=== PATIENT | male | born 1935 | race Caucasian/White ===

== ENCOUNTER → 2017-02-24 | Outpatient (CLI) | payer MEDICARE, MEDICAID ==
[~2017-02-24] MED LIST: AQUAPHOR1 GM TOP; ARTIFICIAL TEA1 EACH OPHTH; ASPIRIN EC81 MG PO; BYSTOLIC2.5 MG PO; COZAAR25 MG PO; COZAAR50 MG PO; DEBROX,CARBAMID15 ML OTIC; DESYREL100 MG PO; DULCOLAX10 MG R; FEOSOL325 MG PO; FIBERCON1 TAB PO; K-TAB ER20 MEQ PO; LASIX40 MG PO; LEVOTHROID (S200 MCG PO; MILK OF MA400 MG/5 M PO; NITROSTAT0.4 MG SL; NORCO 5-325 TA1 EACH PO; NYSTOP60 GM TOP; OXYGEN M-15 INH; THERA-VITE W/ B1 TAB PO; TYLENOL325 MG PO; ULTRAM50 MG PO; ZOCOR20 MG PO
[2017-02-24 11:13] LABS: ALBUMIN 3.5 gm/dL (3.5-5.0); CALCIUM 8.3 mg/dL (8.5-10.5); CREATININE 1.3 mg/dL (0.6-1.3); TOTAL BILIRUBIN 0.7 mg/dL (0.0-1.5); TOTAL PROTEIN 7.3 g/dL (6.0-8.4)
[2017-02-24 11:22] LABS: ANION GAP 14.3 (10.0-19.0); POTASSIUM 4.3 mMol/L (3.7-5.1)
== END | disposition disaster alternative care site (69) ==
PROVIDERS: Family Medicine
DX: E03.9 Hypothyroidism, unspecified (principal); E87.6 Hypokalemia; J44.9 Chronic obstructive pulmonary disease, unspecified; E78.5 Hyperlipidemia, unspecified

== ENCOUNTER → 2017-06-07 | Day surgery (SDC) | payer MEDICARE, MEDICAID ==
[~2017-06-07] VITALS: Ht 149.9 cm; Wt 147.0 kg
--- NOTE | ~2017-06-07 | OR ---
PATIENT'S NAME: BING LLAMAS [facility] AGE: 81 Y [address] ROOM: [place] [address] LOCATION: [facility] [place] ADMIT DATE: 06/07/2017 OR/Procedure Report DISCHARGE DATE: FAMILY PHYSICIAN: Vincent Blanco MD ATTENDING PHYSICIAN: Louisa Andersen SURGEON: Louisa Andersen MD REPAIR ORDER CLERK: DATE OF PROCEDURE: 06/07/2017 ADDENDUM: PROCEDURE DETAILS: At the end of the procedure, a 16-Stateless Rockwell catheter was placed to prevent wound contamination. The patient tolerated the procedure well and was transferred to the recovery room in good condition. MD KATARINA PETTY/sergl /[id number] CC: Vincent Blanco MD d: 06/07/17 1833 t: 06/21/17 1200, OPERATIVE SUMMARY
--- NOTE | ~2017-06-07 | OR ---
PATIENT'S NAME: BING LLAMAS [facility] AGE: 81 Y [address] ROOM: [place] [address] [place] [facility] [place]: 06/07/2017 OR/Procedure Report DISCHARGE DATE: FAMILY PHYSICIAN: Vincent Blanco MD ATTENDING PHYSICIAN: Louisa Andersen SURGEON: Louisa Andersen MD GLASS ROBOT OPERATOR: DATE OF PROCEDURE: 06/07/2017 PREOPERATIVE DIAGNOSIS: Phimosis. POSTOPERATIVE DIAGNOSIS: Phimosis. PROCEDURES PERFORMED: 1. Circumcision. 2. Rockwell catheter placement. ANESTHESIA: General. COMPLICATIONS: None. INDICATION FOR PROCEDURE: The patient is an 81-year-old male with tight phimosis, resultant difficulty voiding. DETAILS OF PROCEDURE: After informed consent was obtained, the patient was taken to the operating room. A general anesthetic was applied. He was placed in a supine position. The groin area was prepped and draped in normal sterile fashion. Next, the dorsal slit was created. The penis was very retracted secondary to the patient's girth. Following this, a skin incision was made just proximal to the foreskin and infected tissue. Using electrocautery, the foreskin was excised. Bleeding areas were fulgurated. The skin was then reapproximated with interrupted 3-0 chromic sutures in a vertical mattress fashion. This was also reinforced with a few interrupted 3-0 Vicryl sutures. The wound was then dressed in normal sterile fashion with the antibiotic ointment. The patient tolerated the procedure well and was transferred back to the half-way. MD KATARINA PETTY/modl PATIENT'S NAME: BING LLAMAS [facility] AGE: 81 Y [address] ROOM: [place] [address] [place] [facility] [place]: 06/07/2017 OR/Procedure Report DISCHARGE DATE: FAMILY PHYSICIAN: Vincent Blanco MD ATTENDING PHYSICIAN: Louisa Andersen /[id number] CC: Vincent Blanco MD d: 06/07/17 1810 t: 06/21/17 1157, OPERATIVE SUMMARY
[2017-06-07 11:33] LABS: BASOPHIL # 0.1 K/uL (0.0-0.2); BASOPHIL % 0.6 %; EOSINOPHIL # 0.3 K/uL (0.0-0.5); EOSINOPHIL % 2.8 %; HEMATOCRIT 38.8 % (33.0-50.0); HEMOGLOBIN 13.3 g/dL (11.0-16.0); IMMATURE GRANULOCYTE # 0.1 K/uL (0.0-0.3); IMMATURE GRANULOCYTE % 1.4 %; LYMPHOCYTE # 1.7 K/uL (0.8-4.0); LYMPHOCYTE % 18.6 %; MCH 34.4 pg (27.0-34.0); MCHC 34.3 gm/dL (32.0-36.5); MCV 100.3 fl (83.0-98.0); MONOCYTE # 0.6 K/uL (0.0-1.0); MONOCYTE % 6.8 %; MPV 10.5 fl (9.4-12.4); NEUTROPHIL # (ANC) 6.5 K/uL (1.4-9.0); NEUTROPHIL % 69.8 %; NRBC % 0 /100WBC (0-0.00); PLATELET COUNT 123 K/uL (150-450); RBC 3.87 M/uL (3.50-5.50); RDW-CV 14.6 % (11.9-14.6); WBC 9.3 K/uL (4.0-11.0)
[2017-06-07 11:49] LABS: ALBUMIN 3.2 gm/dL (3.5-5.0); ANION GAP 10.7 (10.0-19.0); CREATININE 1.4 mg/dL (0.6-1.3); POTASSIUM 4.7 mMol/L (3.7-5.1); TOTAL BILIRUBIN 0.5 mg/dL (0.0-1.5); TOTAL PROTEIN 7.6 g/dL (6.0-8.4)
== END | disposition disaster alternative care site (69) ==
LOC: GPOC 06-05 09:00 → GSDC 10:50 → GPOC 11:00
PROVIDERS: Urology
PROC: 0VTTXZZ Resection of Prepuce, External Approach (ICD-10-PCS; principal; 2017-06-07)
PROC: 0T9B70Z Drainage of Bladder with Drainage Device, Via Natural or Artificial Opening (ICD-10-PCS; 2017-06-07)
DX: N47.1 Phimosis (principal); N48.5 Ulcer of penis; I10 Essential (primary) hypertension; E78.5 Hyperlipidemia, unspecified; E03.9 Hypothyroidism, unspecified; Z79.82 Long term (current) use of aspirin; Z79.899 Other long term (current) drug therapy
CPT/HCPCS: J2001; J7030

== ENCOUNTER 2017-06-19 15:19 | Inpatient (IN) | payer MEDICARE, MEDICAID ==
[~2017-06-19] VITALS: Ht 180.3 cm; Wt 141.7 kg
--- NOTE | ~2017-06-19 | ECHO ---
Transesophageal Echocardiography Report (SHERINE) Demographics Patient Name BING LLAMAS SR Date of Study 06/22/2017 Patient Number [id number] Visit Number [id number] Date of 1935 Room Number [id number] Gender Male Number Age 81 year(s) Referring Stanislawhamida Kaur Karyn Cloth Finishing Range Tender Whitney Ortega [facility], Physician Howie Decker RVT Physician Interpreting Howie Decker Tile Machine Operator Physician MD Supervising Ordering Jamshid Capellan CRNA, MD/MLP Physician Nurse Stress Workers Compensation Claims Specialist Conclusions Summary Normal LV/RV size and systolic function. The estimated left ventricular ejection fraction is 60-65%. Bubble study was done, there is no evidence for a PFO or ASD. MV is grossly normal. Mild mitral regurgitation by color Doppler. There is trivial aortic regurgitation by color Doppler. The aortic valve is moderately calcific with restricted opening, no obvious vegetation noted. There is no evidence of any gross valvular vegetations. Procedure Type of Study SHERINE procedure Procedure Date Date: 06/22/2017 Start: 07:55 AM Study Location: Inpatient Portable Technical Quality: Adequate visualization Indications:Endocarditis. Appropriate Use Criteria: 9 Patient Status: Routine Rhythm: Atrial fibrillation HR: 101 bpm BP: 144/56 mmHg Findings Left Ventricle The estimated left ventricular ejection fraction is 60-65%. Left Atrium Bubble study was done, there is no evidence for a PFO or ASD. Mitral Valve Mild mitral regurgitation by color Doppler. No vegetations seen. Aortic Valve There is trivial aortic regurgitation by color Doppler. The aortic valve is moderately calcified. No vegetations seen. Tricuspid Valve No vegetations seen. Pulmonic Valve No vegetations seen. Miscellaneous The patient was brought to the [facility] lab in the fasting state after informed consent was obtained in the written and verbal format. He was prepped with Lidocaine as usual. Bite block was placed. Once adequate anesthesia was obtained with anesthesia guidance with propofol sedation the SHERINE probe was placed by me down into the stomach. It was pulled back slightly after a few views were obtained in the transgastric level to the transesophageal position where the majority of the case was carried out. At the end of the case the probe was rotated and withdrawn. Patient tolerated the procedure well. Contractility Score LV regional wall motion:(0-Non visualized 1-Normal 2-Hypokinesis 3-Akinesis 4-Dyskinesis 5-Aneurysm) Signature dtt: MIRTHA PADGETT dtd: 06/22/17 0755 Physician Self Edit
--- NOTE | ~2017-06-19 | HP ---
PATIENT'S NAME: BING LLAMAS [facility] AGE: 81 Y [address] ROOM: [place] [address] LOCATION: GICU ADMIT DATE: 06/19/2017 History & Physical DISCHARGE DATE: FAMILY PHYSICIAN: Vincent Blanco MD ATTENDING PHYSICIAN: YARY AKINS DATE OF SERVICE: 06/19/2017 CHIEF COMPLAINT: Confusion. HISTORY OF PRESENT ILLNESS: This is a pleasant 81-year-old male, dropped off by [facility] where he resides chronically, was dropped off without communication from staff regarding recent concerns at skilled nursing. The patient was noted to be confused and unable to provide significant further history. Per ED staff, [facility] was called and the nurse who had been taking care of the patient was unavailable. We were able to obtain some history. The patient has been febrile since yesterday with shaking chills. Does have a notable recent history of circumcision for phimosis performed on June 07. Currently, the patient is unable to provide significant medical history regarding recent events. He thinks he is at [facility] and is unaware of why he might be in the hospital. Records were attempted to be obtained from [facility] via phone, and records have been reviewed. This shows a past medical history of major depression; insomnia; unspecified dementia; essential hypertension; unspecified anemia; history of wedge compression fracture; morbid obesity; hypothyroidism; phimosis, status post recent circumcision. The patient is able to state that he does not notice any recent headache, nausea, vomiting, chest pain, shortness of breath, cough, abdominal pain, dysuria, constipation, or diarrhea, though I question the accuracy of these responses. FAMILY HISTORY: Currently unobtainable. Attempted to gather from [facility] records and patient. SOCIAL HISTORY: The patient does reside at [facility] chronically. He does have a reported history via chart of high-risk heterosexual behavior, but unable to further identify what this would indicate today. No recent known ingestions including no alcohol or tobacco. ALLERGIES: NO KNOWN DRUG ALLERGIES. PATIENT'S NAME: BING LLAMAS [facility] AGE: 81 Y [address] ROOM: [place] [address] LOCATION: GICU ADMIT DATE: 06/19/2017 History & Physical DISCHARGE DATE: FAMILY PHYSICIAN: Vincent Blanco MD ATTENDING PHYSICIAN: YARY AKINS MEDICATIONS: Currently being reconciled. REVIEW OF SYSTEMS: Review of systems attempted to be obtained via discussions with [facility] as well as discussions with nurses in the emergency department and emergency room staff. The patient was able to complete as noted above in HPI, though question these results. Further review of systems is unobtainable. PHYSICAL EXAMINATION: VITAL SIGNS: Temp 102, pulse 111, blood pressure 90s over 50s, respirations 18, saturating well on room air. GENERAL: No acute distress, nondiaphoretic, comfortable but confused. NECK: Supple without rigidity. Unable to appreciate JVD due to neck size. No appreciable thyromegaly or lymphadenopathy. CARDIOVASCULAR: Tachycardic without appreciable murmur, rubs, or gallops. Pulses in dorsalis pedis and radial bilaterally at 2+. RESPIRATORY: Clear to auscultation bilaterally with normal effort. Saturating well on room air. ABDOMEN: Soft, nontender, but obese, with normoactive bowel sounds. EXTREMITIES: Notable for venous stasis changes in bilateral lower extremities from mid calf below without appreciable pitting edema. NEUROLOGIC: The patient is alert, oriented to person, but not to place or time. The patient does follow commands and is able to spontaneously move all extremities with normal strength bilaterally. : Notable for recent circumcision. No appreciable warmth or erythema around surgical site. LABS AND IMAGING: Labs notable for white blood cell count 31.0, hemoglobin 13.9, platelets 171. CMP notable for elevated creatinine to 2.2 from baseline 1.4 with sodium 133, potassium 4.8, chloride 101, bicarb 20, BUN 40, glucose 165, calcium 8.8. LFTs notable for bilirubin slightly elevated at 1.4, otherwise, unremarkable. Troponin negative. INR 1.31. Chest x-ray without appreciable infiltrate. Urinalysis showing extensive pyuria. ASSESSMENT: 1. Severe sepsis secondary to urinary tract infection with concern for impending septic shock. 2. Metabolic encephalopathy. 3. Acute renal failure. 4. Non-anion gap metabolic acidosis. 5. Mild hyponatremia. PATIENT'S NAME: BING LLAMAS [facility] AGE: 81 Y [address] ROOM: [id number] [place], [place] [address] LOCATION: [facility] ADMIT DATE: 06/19/2017 History & Physical DISCHARGE DATE: FAMILY PHYSICIAN: Vincent Blanco MD ATTENDING PHYSICIAN: YARY AKINS PLAN: We will admit patient under ICU status, sepsis bundle initiated in the emergency department at 1656 hours, initial lactic acid was 2.6 and repeat has been ordered for 7 p.m. based on initial results at 4:17 p.m. The patient was started on Zosyn and Levaquin in the emergency room for this UTI as it contributes to sepsis, and we will continue these agents for now pending culture results. The patient is currently receiving the end of his first liter of normal saline bolus. We will follow this up with an additional liter and continue until we have met 30 mL per kg as blood pressures remain borderline. Consider central venous catheter placement if BP still low, given difficulty with peripheral access currently and anticipated potential need for pressors through central access. Suspect acute renal failure secondary to sepsis, we will recheck this along with mild hyponatremia in a.m. and follow up repeat lactate level due soon. We will plan to continue home medications barring any antihypertensive agents, though records of home medications are currently being obtained. We will continue efforts to discuss further with [facility] to gain additional insight into presentation though this likely stems from recent circumcision and urinary tract infection from genitourinary manipulation. We will give heparin 5000 units q.8 hours for DVT prophylaxis. Per outside advance directive, the patient is a DO NOT RESUSCITATE. I spent 40 minutes with the patient involving direct [id number] care as well as coordination of care including interpretation and review of outside records. MD CJ CESPEDES/michael /[id number] D: 208 T: [id number] HISTORY & PHYSICAL
--- NOTE | ~2017-06-19 | ER ---
PATIENT'S NAME: BING LLAMAS [facility] AGE: 81 Y [address] ROOM: [address] [address] LOCATION: [facility] ADMIT DATE: 06/19/2017 ER/Outpatient Report DISCHARGE DATE: FAMILY PHYSICIAN: Vincent Blanco MD ATTENDING PHYSICIAN: YARY AKINS ADDENDUM: Thirty minutes of critical care was provided in the emergency room. AUSTIN DURHAM MD CAR/modl /[id number] d: 06/20/17 0740 t: 06/28/17 2045, OUTPATIENT REPORT
--- NOTE | ~2017-06-19 | DS ---
PATIENT'S NAME: BING LLAMAS [facility] AGE: 81 Y [address] ROOM: [address] [place], [place] [address] LOCATION: [facility] [place] ADMIT DATE: 06/19/2017 Discharge Summary DISCHARGE DATE: 06/27/2017 FAMILY PHYSICIAN: Vincent Blanco MD ATTENDING PHYSICIAN: Timi Breen DISCHARGE DIAGNOSES: 1. Severe sepsis with methicillin-resistant Staphylococcus aureus bacteremia. 2. Acute encephalopathy. 3. Essential hypertension. 4. Chronic nocturnal hypoxic respiratory failure. 5. Recent phimosis repair. 6. Acute kidney injury. 7. Hypokalemia. 8. Morbid obesity. HOSPITAL COURSE: Please refer to admitting history and physical as dictated by Dr. Breen. Briefly, the patient was admitted to [facility] to the intensive care unit with severe sepsis secondary to a urinary tract infection. He was placed on the sepsis order set. He was hydrated. Heparin was used for DVT prophylaxis. Rockwell catheter was placed. He was started on Zosyn and Levaquin after cultures had been obtained. Initial lactic acid was 2.6. White blood cell count was found to be 31.0. UA showed extensive pyuria. The patient was also started on ceftriaxone IV. He was noted to have acute kidney injury. His Lasix was held. Cultures did reveal MRSA in the blood. Ceftriaxone was subsequently discontinued. Infectious Disease was consulted. It was their recommendation to continue vancomycin for a total of 2 weeks from negative cultures. SHERINE was performed with Dr. Cole. Echo showed no obvious vegetations or gross valvular vegetation. Repeat blood cultures were taken on 06/23/2017 which continued to be reported as negative to date. He was noted to have hypokalemia which was replaced periodically. Due to the need for long-term vancomycin use, a PICC line was placed by Dr. Nash. He was transferred out of the ICU. Blood pressure medications were resumed and titrated. His Bystolic was increased to 5 mg p.o. daily. He was restarted on his Lasix as his acute kidney injury did resolve. His creatinine did remain stable, 0.8 on the day of discharge. Hemoglobin 11.8. He was placed on Florastor while he is on antibiotics. Oxygen requirements remained stable at 2 L when asleep as he wears chronically. The patient continued to improve. Vancomycin trough was recommended to be obtained on 06/28/2017, and a goal trough level per Infectious Disease is 15 to 18. Physical Therapy and Occupational Therapy did follow the patient during his stay. He did require a full lift to the chair. On the day of discharge, he had been 4 days with no bowel movement. He refused a suppository. He was given senna 2 tablets p.o. His potassium was found to be 3.0 on the day of discharge. He was given 40 PATIENT'S NAME: BING LLAMAS [facility] AGE: 81 Y [address] ROOM: [place] [address] LOCATION: [facility] [place] ADMIT DATE: 06/19/2017 Discharge Summary DISCHARGE DATE: 06/27/2017 FAMILY PHYSICIAN: Vincent Blanco MD ATTENDING PHYSICIAN: Timi Breen mEq prior to his discharge with subsequent potassium to be given once at the care home facility. On the day of discharge, he was alert and oriented. Vital signs were stable. I did call and speak with Dr. Blanco on the day of discharge with a summary of the hospital events. The patient will be discharged to [facility] today. Follow up with Dr. Blanco in 3 days. LABORATORY DATA: Sodium 133 upon admit, 142 prior to discharge; potassium 4.8 upon admit, it did drop as low as 3.0 on the day of discharge for which he was given replacement; calcium 8.2; BUN 40 on admit, 11 prior to discharge; creatinine 1.4, it did go as high as 2.2, and 0.8 prior to discharge. Alkaline phosphatase 121, AST 31, and ALT 32. Phosphorus 2.1. GFR 27 on admit, 84 prior to discharge. Magnesium 1.8. WBCs 31 on admit, 8.4 prior to discharge; hemoglobin remained stable at 11.8 to 13.9; hematocrit 32.6 to 39.5; platelets 157. Procalcitonin 1.28. Urine: Leukocytes 500, nitrites negative, protein 100, blood 150, wbc's packed field, bacteria few, wbc clumps. Blood cultures drawn on 06/19/2017 showed MRSA. Urine culture drawn on 06/19/2017 showed MRSA greater than 100,000. Repeat blood cultures drawn on 06/23 showed no growth to date. Occult blood negative. C diff negative. DISCHARGE INSTRUCTIONS: The patient will be discharged to [facility]. Dr. Blanco to continue to follow. Follow up with Dr. Blanco in 3 days. Follow up with Infectious Disease in 2 weeks. Needs to be seen prior to 07/07 antibiotic stop date. Diet: Regular. Weightbearing as tolerated with assistance, full lift. PT and OT to evaluate and treat as indicated. Oxygen as needed to keep saturations greater than 90%. 2 L of oxygen when asleep. Vancomycin trough to be drawn on 06/28/2017, goal 15 to 18. BMP 06/28/2017 and 06/30/2017, then as per primary care provider, Dr. Blanco. To fax labs to Dr. Blanco. The patient was sent to [facility] with urinary catheter. This should be managed as per Urology. REHAB POTENTIAL: Poor. DISCHARGE POTENTIAL: Poor. DISCHARGE MEDICATIONS: 1. Vancomycin 2 g IV daily, stop after 07/17/2017 dose. Vancomycin trough to be drawn on 06/28/2017, results to be forwarded to Dr. Blanco. 2. Artificial Tears one drop four times daily. 3. Aspirin 81 mg p.o. daily. 4. Feosol 325 mg p.o. twice daily. 5. Lasix 20 mg p.o. daily. 6. Levothyroxine 200 mcg p.o. daily. 7. Bystolic 5 mg p.o. daily. 8. Florastor 250 mg p.o. twice daily. PATIENT'S NAME: BING LLAMAS [facility] AGE: 81 Y [address] ROOM: [address] [address] LOCATION: [facility] [place] ADMIT DATE: 06/19/2017 Discharge Summary DISCHARGE DATE: 06/27/2017 FAMILY PHYSICIAN: Vincent Blanco MD ATTENDING PHYSICIAN: Timi Breen 9. Zocor 20 mg p.o. daily. 10. Sodium chloride flush for PICC line as per protocol. 11. Tylenol 650 mg p.o. every 4 hours as needed for pain. 12. Potassium chloride 20 mEq p.o. 3 times daily. 13. Oxygen 2 L at bedtime. 14. Milk of magnesia 30 mL p.o. q.24 hours p.r.n. constipation. 15. Aquaphor, apply topically as needed. 16. Multivitamin one tablet p.o. daily. 17. Debrox 3 drops Mondays and . 18. Dulcolax suppository 10 mg every 24 hours p.r.n. constipation. 19. FiberCon 2 tablets p.o. daily. 20. Nitrostat 0.4 mg sublingual as needed for chest pain. 21. Nystatin, apply topically p.r.n. groin excoriation twice daily. Time spent at the bedside as well as in consultation with primary care physician and in coordination of care is 40 minutes. Thank you for allowing us to participate in the care of this patient as he has been hospitalized at [facility]. ASAEL GOLDMAN APRN FOR MD PRIYANKA ENGLAND/michael /[id number] CC: Vincent Blanco MD Urology Department Infectious Disease d: 06/28/17 1317 t: 07/06/17 1738, DISCHARGE SUMMARY
--- NOTE | ~2017-06-19 | ER ---
PATIENT'S NAME: BING LLAMAS [facility] AGE: 81 Y [address] ROOM: [place] [address] LOCATION: [facility] ADMIT DATE: 06/19/2017 ER/Outpatient Report DISCHARGE DATE: FAMILY PHYSICIAN: Vincent Blanco MD ATTENDING PHYSICIAN: YARY BREEN Time of Arrival: 1519. Time of Evaluation: 1520. IDENTIFICATION: An 81-year-old male. CHIEF COMPLAINT: Fever and shaking. HISTORY OF PRESENT ILLNESS: The patient is an 81-year-old male from [facility] who was dropped in the waiting room by [facility] staff but they were not here when the patient was brought back, so no history was able to be obtained. The patient is confused and not able to give me some history. I did call the [facility] and the nurse I talked to [place] was not the nurse that was caring for him so she gave me what information she could, but the nurse caring for him was actually gone for the day. He apparently had a fever last evening. T- max today this morning was 102. He has been shaking. His abdomen felt "hot." He recently had a circumcision. He has been lethargic and confused today. He is not normally confused and he is not eating today. She had no other additional information and we initially did not even have a med list. ALLERGIES: NO KNOWN DRUG ALLERGIES. CURRENT MEDICATIONS: 1. Aspirin 81 mg daily. 2. Dyazide tablet 25 mg daily. 3. FiberCon tablet daily. 4. Debrox solution 3 drops in both ears. 5. Levothyroxine 200 mcg daily. 6. Trazodone 100 mg at bedtime. 7. Zocor 20 mg daily. 8. Aquaphor ointment b.i.d. 9. Lasix 40 mg b.i.d. 10. Losartan 75 mg b.i.d. 11. Nystatin powder topically b.i.d. 12. Hubbell 5/325 one q.6 hours p.r.n. pain. 13. Potassium tablet 20 mEq three times a day. PATIENT'S NAME: BING LLAMAS [facility] AGE: 81 Y [address] ROOM: [id number] [place] [address] LOCATION: [facility] ADMIT DATE: 06/19/2017 ER/Outpatient Report DISCHARGE DATE: FAMILY PHYSICIAN: Vincent Blanco MD ATTENDING PHYSICIAN: YARY BREEN 14. Tramadol 50 mg t.i.d. 15. Artificial Tears p.r.n. 16. Dulcolax suppository p.r.n. 17. Milk of magnesia p.r.n. 18. Nitroglycerin tablet p.r.n. 19. Hubbell p.r.n. 20. Tylenol p.r.n. MEDICAL PROBLEMS: Hypothyroidism, dependant edema, hypertension, hyperlipidemia, morbid obesity, phimosis, status post circumcision June [address] Andersen. PRIOR SURGERIES: Unknown other than the recent circumcision. SOCIAL HISTORY: The patient lives at [facility]. Tobacco use, unknown. Alcohol use, unknown. Drug use, unknown. REVIEW OF SYSTEMS: Unable to obtain from the patient due to his acute confusion and no family or staff available. FAMILY HISTORY: Unable to obtain. PHYSICAL EXAMINATION: VITAL SIGNS: Height 5 feet 5 inches, weight 139 kg. Blood pressure 119/61, pulse 111, respirations 22, temperature 101.5, saturations 93% on room air. GENERAL: An 81-year-old confused male in mild distress. HEENT: Head: Normocephalic. Eyes: Pupils equal and reactive to light and accommodation. Extraocular movements intact. Nose: Mucosa pink. No lesions. Mouth: No lesions. Pharynx benign. Mucous membranes slightly dry. TMs not visualized. NECK: Supple. No nuchal rigidity. LUNGS: Clear to auscultation. Breath sounds are equal. No wheezes or rales. He does have some scattered rhonchi. HEART: Sinus tachycardia. A 2/6 systolic murmur. ABDOMEN: Protuberant. Bowel sounds present. Soft, nondistended, appears to be slightly tender to palpation. No rebound or guarding. No CVA tenderness. : Circumcision site, no drainage or significant erythema. He does have a small ulcerative lesion on the skin folds just to the left on his scrotal sac. EXTREMITIES: He has bilateral edema. No calf tenderness. He has chronic venous stasis changes. NEURO: The patient is alert, but not oriented. He has no focal deficit. He PATIENT'S NAME: BING LLAMAS [facility] AGE: 81 Y [address] ROOM: [id number], [place] [address] LOCATION: [facility] ADMIT DATE: 06/19/2017 ER/Outpatient Report DISCHARGE DATE: FAMILY PHYSICIAN: Vincent Blanco MD ATTENDING PHYSICIAN: YARY BREEN does have some generalized shaking. EMERGENCY DEPARTMENT COURSE: An IV was initiated. Labs were drawn to include blood cultures. Procalcitonin is elevated at 1.28. UA shows a packed field of white blood cells. Urine culture pending. Blood cultures x2 pending. Hemoglobin 13.9, hematocrit 39.5, platelets 171, white count 31,000 with a left shift, 79% segs, 13% bands. INR 1.31. Sodium 133, potassium 4.8, chloride 101, CO2 of 20, BUN 40, creatinine 2.2 which is elevated from 1.4 at his recent hospital stay. Glucose 165. Liver enzymes normal. Troponin I less than 0.040. Lactate elevated at 2.6. EKG sinus rhythm at 95 beats per minute, right bundle-branch block. No acute ST elevation or depression. One-view chest x- ray, no acute process. Pending Radiology over-read. Head CT, generalized atrophic changes. No acute findings per Radiology. IMPRESSION: 1. Severe sepsis. The patient's blood pressure had remained 110 initially, but then dropped to 96 systolic. He was given initial 1 L fluid bolus. Further fluid orders per Dr. Breen, hospitalist, who evaluated the patient in the emergency room. Repeat lactate was ordered at 3 hours from initial lab draw. Antibiotics were started to include Zosyn and Levaquin. 2. Acute kidney injury. 3. Recent circumcision. 4. Altered mental status, probably secondary to sepsis. 5. Hyponatremia, mild. 6. Morbid obesity. 7. Hypothyroidism. 8. History of hypertension. PLAN: For admission to ICU per ayala Fitzgeraldist. Sepsis orders were initiated in the emergency room. AUSTIN DURHAM MD CAR/modl /[id number] d: 06/20/17731 t: 06/28/172040, OUTPATIENT REPORT
--- NOTE | ~2017-06-19 | CON ---
PATIENT'S NAME: BING LLAMAS [facility] AGE: 81 Y [address] ROOM: [place] [address] LOCATION: [facility] ADMIT DATE: 06/19/2017 Consultation DISCHARGE DATE: FAMILY PHYSICIAN: Vincent Blanco MD ATTENDING PHYSICIAN: YARY AKINS DATE OF CONSULTATION: 06/21/2017 REASON FOR CONSULTATION: MRSA bacteremia and UTI. HISTORY: Mr. Llamas is an 81-year-old male, who was admitted to the hospital apparently with fevers, chills, and mental status changes. He resides in a skilled facility and was apparently brought to the emergency room with those complaints. He had a phimosis and underwent surgery on 06/07. He reports he is doing okay after that and then does not remember the sequence of events leading to admission. He is now feeling better. He just wants some water but he is n.p.o. for SHERINE. Does not have pain and does not have any more fevers or chills. His blood cultures and urine culture have not shown MRSA and ID is asked to see him. He was initially started on broad antibiotics and was started on vancomycin yesterday. He is not having nausea, vomiting, or diarrhea. He does not have any other wounds or sores. His only request is that he gets to go back to his correction when he is ready to leave. PAST MEDICAL HISTORY: Significant for the phimosis and the surgery, depression, dementia, hypertension, anemia, compression fractures, morbid obesity, hypothyroidism. MEDICATIONS: Noted. He is now on vancomycin, started yesterday. He is on 2 g every 36 which dosing I will adjust. FAMILY HISTORY: Not pertinent to his current illness and not reliably obtained from the record. SOCIAL HISTORY: He is at [facility]. No current alcohol or tobacco use. REVIEW OF SYSTEMS: Appears to be negative and all remaining review of systems, however, are not completely reliable with pertinent positives and negatives in the HPI. PHYSICAL EXAMINATION: PATIENT'S NAME: BING LLAMAS [facility] AGE: 81 Y [address] ROOM: [place] [address] LOCATION: [facility]ICU ADMIT DATE: 06/19/2017 Consultation DISCHARGE DATE: FAMILY PHYSICIAN: Vincent Blanco MD ATTENDING PHYSICIAN: YARY AKINS GENERAL: He does not look acutely ill. He is awake, alert, and oriented. He is on O2 via nasal cannula. Does seem a little bit uncertain of what the events were. VITAL SIGNS: His T-max is 99.4, currently he is 98.3, blood pressure is 144/58, pulse is 73, respirations 22. HEENT: Without icterus or thrush. NECK: Supple. LUNGS: Decreased breath sounds. HEART: Distant, S1, S2. I do not appreciate a murmur. ABDOMEN: Soft, nontender. EXTREMITIES: Reveal mild edema. He has gloves on both of his hands. SKIN: Without rash. LABORATORY DATA: Both sets of blood cultures from 06/19, and a urine culture from 06/19 are growing MRSA. White count is still elevated. It was 31 on and 23.5, yesterday, it was not repeated today. Hemoglobin is 12.7, platelet count is 131, down a little bit from admission. His chemistry showed a creatinine of 2.1 which is well above his baseline. Sodium 137, potassium 3.7, chloride 105, bicarb 24, BUN 39, creatinine 2.1, glucose is 135. ASSESSMENT: 1. Methicillin-resistant Staphylococcus aureus bacteremia. 2. Urinary tract infection with methicillin-resistant Staphylococcus aureus, likely the primary source given his recent surgery. However, hard to know and rule out a secondary source seeding the kidney but suspect based on his history that this was related to his phimosis repair. 3. Recent phimosis repair. PLAN: Continue vancomycin. He is on 2 g q.36 h. I will change him to 1 g daily and need to keep an eye on how his creatinine does in its levels. All I really need is a trough around 15-18. He has repeat blood cultures that are cooking, so he would need 2 weeks of therapy from clear cultures assuming that his SHERINE is negative. I have ordered repeat blood cultures in the morning and proceed from there. If his SHERINE happens to be positive, which I do not suspect, and this will alter the duration of therapy. I doubt he would be any kind of a surgical candidate. Please call with questions. MD QUYNH PRAKASH/michael PATIENT'S NAME: BING LLAMAS [facility] AGE: 81 Y [address] ROOM: [address] [address] LOCATION: [facility] ADMIT DATE: 06/19/2017 Consultation DISCHARGE DATE: FAMILY PHYSICIAN: Vincent Blanco MD ATTENDING PHYSICIAN: YARY AKINS /[id number] d: 06/21/17 1402 t: 06/22/17 1046, CONSULTATION REPORT
[~2017-06-19 15:19] MED LIST changes: -NYSTOP60 GM TOP
[2017-06-19 16:24] LABS: HEMATOCRIT 39.5 % (33.0-50.0); HEMOGLOBIN 13.9 g/dL (11.0-16.0); MCH 33.6 pg (27.0-34.0); MCHC 35.2 gm/dL (32.0-36.5); MCV 95.4 fl (83.0-98.0); MPV 10.7 fl (9.4-12.4); PLATELET COUNT 171 K/uL (150-450); RBC 4.14 M/uL (3.50-5.50); RDW-CV 14.6 % (11.9-14.6)
[2017-06-19 16:34] LABS: INR - (THERAPEUTIC) 1.31 (0.92-1.07); PROTIME 13.8 SECONDS (9.8-11.4); PTT 31 SECONDS (25-32)
[2017-06-19 16:43] LABS: BILIRUBIN URINE NEGATIVE (NEGATIVE); BLOOD URINE 150 /UL (NEGATIVE); COLOR URINE YELLOW (YELLOW); GLUCOSE URINE NEGATIVE (NEGATIVE); KETONE URINE NEGATIVE (NEGATIVE); LEUKOCYTES URINE 500 /UL (NEGATIVE); NITRITE URINE NEGATIVE (NEGATIVE); PH URINE 6.5 (4.0-8.0); PROTEIN URINE 100 mg/dL (NEGATIVE); TURBIDITY URINE 3+ (CLEAR); UROBILINOGEN URINE NORMAL (NORMAL)
[2017-06-19 16:43] LABS: ALBUMIN 2.9 gm/dL (3.5-5.0); ALK PHOS 100 IU/L (33-138); ALT 18 IU/L (12-78); ANION GAP 16.8 (10.0-19.0); AST 22 IU/L (10-40); BLOOD UREA NITROGEN 40 mg/dL (6-24); CALCIUM 8.8 mg/dL (8.5-10.5); CHLORIDE 101 mMol/L (96-110); CO2 20 mMol/L (22-32); CREATININE 2.2 mg/dL (0.6-1.3); POTASSIUM 4.8 mMol/L (3.7-5.1); SODIUM 133 mMol/L (135-145); TOTAL PROTEIN 7.9 g/dL (6.0-8.4)
[2017-06-19 16:44] LABS: TOTAL BILIRUBIN 1.4 mg/dL (0.0-1.5)
[2017-06-19 16:50] LABS: WBC URINE PACKED FIELD #/HPF (NEGATIVE)
[2017-06-19 16:51] LABS: BACTERIA URINE FEW (NEGATIVE); WBC CLUMPS URINE MODERATE (NEGATIVE)
[2017-06-19 17:03] LABS: ABSOLUTE NEUTROPHIL CT (ANC) 28.5 K/uL (1.4-9.0); BANDED NEUTROPHILS % 13 %; LYMPHOCYTE # 1.2 K/uL (0.8-4.0); LYMPHOCYTE % 4 %; MONOCYTE # 1.2 K/uL (0.0-1.0); SEGMENTED NEUTROPHIL # 24.5 K/uL (1.4-9.0); SEGMENTED NEUTROPHIL % 79 %
[2017-06-19] MEDS ORDERED: NYSTOP60 GM TOP (22:59)
[2017-06-20 05:15] LABS: BASOPHIL % 0.1 %; HEMATOCRIT 37.1 % (33.0-50.0); HEMOGLOBIN 12.7 g/dL (11.0-16.0); IMMATURE GRANULOCYTE # 0.2 K/uL (0.0-0.3); IMMATURE GRANULOCYTE % 0.9 %; LYMPHOCYTE # 1.5 K/uL (0.8-4.0); LYMPHOCYTE % 6.5 %; MCHC 34.2 gm/dL (32.0-36.5); MCV 99.5 fl (83.0-98.0); MONOCYTE # 1.9 K/uL (0.0-1.0); MONOCYTE % 7.9 %; MPV 11.2 fl (9.4-12.4); NEUTROPHIL # (ANC) 19.9 K/uL (1.4-9.0); NEUTROPHIL % 84.6 %; NRBC % 0 /100WBC (0-0.00); RBC 3.73 M/uL (3.50-5.50); RDW-CV 14.6 % (11.9-14.6)
[2017-06-20 05:20] LABS: PLATELET COUNT 131 K/uL (150-450); WBC 23.5 K/uL (4.0-11.0)
[2017-06-20 05:38] LABS: ANION GAP 11.7 (10.0-19.0); CALCIUM 8.5 mg/dL (8.5-10.5); CREATININE 2.1 mg/dL (0.6-1.3); POTASSIUM 3.7 mMol/L (3.7-5.1)
--- NOTE | 2017-06-20 06:03 | NUR ---
Significant Event: Pt is alert and orineted to self and place at times. 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 Moves all extremities spontaneously and to command. Pt does have some generalized tremmors at times. Pt's BP has remained stable throughout this shift. Pt remains on RA. Rockwell cath placed this shift. Urine has been cloudy. 1 large loose incont BM this shift. [address] Follow up: Continue to monitor
--- NOTE | 2017-06-20 13:01 | NUR ---
Reviewed chart, pt is sleeping. Pt from [facility], child care center assistant director will follow and assist with dc back to [facility] when ready for discharge.
--- NOTE | 2017-06-20 18:17 | NUR ---
Significant Event: [place] to self, occasionally alert to location. Able to follow commands and moves spontaneously. R) pupil 4mm non-reactive, blind in this eye, L) pupil 4mm brisk. Equal moderate strength throughout, denies N/T. SBP 120-150's, HR 80's, 1+ generalized edema throughout, weak pedal pulses. L.S. clear and diminished in upper lobes, diminished in lower lobes on RA. B.S. active, 3 loose stools black in apperance. Rockwell catheter intact draining cloudy, yellow/white sediment, adequate UOP. Full Lift for transfers. Takes medications whole. Little to no appetite, refused AM and lunch meals. PIV R) chest SL'd, PIV R) forearm infusing NaCl at 125mL/hr. Follow up: Positive Blood Cultures MRSA, contact ISO
--- NOTE | 2017-06-21 05:44 | NUR ---
Significant Event: Patient is alert to self and place. Denies N/T. Follows commands. RLE weaker than LLE. Right eye blind. Put on 1 L of 02 while sleeping to keep sats above 90%. Rockwell intact. PIV running NS at 125 ml/hr. Afebrile this shift. 2 loose bms this shift. Isolation for MRSA. VSS. Follow up: Continue to monitor
--- NOTE | 2017-06-21 15:38 | NUR ---
Significant Event: Alert to self and location. Obeys commands and moves spontaneously. Blind in R) eye, R) pupil 3mm non-reactive. L) pupil 3mm brisk. Denies N/T. Equal moderate strength in upper extremities. LLE slightly weaker with plantar/dorsiflexion. SBP 140-160's, HR 60-70's, 2+ generalized edema, weak pedal pulses. L.S. clear and diminished on RA. B.S. active, one loose BM this shift, incontinent. Rockwell catheter intact draining white sedimentary belinda urine. PIV R) anterior forearm infusing NaCl 125mL/hr with intermittent Vanco. R) chest PIV SL'd. Mechanical soft diet, thin liquids, takes medications whole. Follow up: NPO at midnoc for SHERINE in AM. Tried contacting both granddaughters, one sister and one brother for telephone consent numerous times throughout shift, left voicemails when available and awaiting for call-back to perform procedure with Dr. Cole.
--- NOTE | 2017-06-22 04:50 | NUR ---
Patient A/O to place and person not to time. Lungs clear/diminished, 1L NC. Bowel sounds active, passing gas, no BM this shift. IV to Rt chest, flushes well no blood return, hard IV stick. NS at 125ml/hr. VSS, take BP on lt lower leg. Bottom slightly red, no open areas, repo Q2hrs. SHERINE today. NPO. No complaints. Needs help feeding self. Back to [place] on DC.
[2017-06-22 07:53] LABS: BASOPHIL % 0.3 %; EOSINOPHIL # 0.1 K/uL (0.0-0.5); EOSINOPHIL % 1.2 %; HEMATOCRIT 32.6 % (33.0-50.0); HEMOGLOBIN 11.3 g/dL (11.0-16.0); IMMATURE GRANULOCYTE # 0.1 K/uL (0.0-0.3); IMMATURE GRANULOCYTE % 1.2 %; LYMPHOCYTE # 0.8 K/uL (0.8-4.0); LYMPHOCYTE % 10.1 %; MCH 33.9 pg (27.0-34.0); MCHC 34.7 gm/dL (32.0-36.5); MCV 97.9 fl (83.0-98.0); MONOCYTE # 0.5 K/uL (0.0-1.0); MONOCYTE % 6.6 %; MPV 11.3 fl (9.4-12.4); NEUTROPHIL # (ANC) 6.2 K/uL (1.4-9.0); NEUTROPHIL % 80.6 %; NRBC % 0 /100WBC (0-0.00); PLATELET COUNT 102 K/uL (150-450); RBC 3.33 M/uL (3.50-5.50); RDW-CV 14.3 % (11.9-14.6); WBC 7.7 K/uL (4.0-11.0)
[2017-06-22 08:09] LABS: CALCIUM 7.6 mg/dL (8.5-10.5); TOTAL PROTEIN 6.1 g/dL (6.0-8.4)
[2017-06-22 08:23] LABS: ANION GAP 12.9 (10.0-19.0); CREATININE 0.9 mg/dL (0.6-1.3); POTASSIUM 2.9 mMol/L (3.7-5.1); TOTAL BILIRUBIN 0.6 mg/dL (0.0-1.5)
--- NOTE | 2017-06-22 17:55 | NUR ---
Significant Event: Alert and orient X 3. Disoriented to year but does now the month. Lungs clear and diminished. O2 by nasal canula at 1L. SBP 130's and 170's. HR 70's. Potassium given this shift d/t potassium 2.9. IV to right chest, flushes well with no blood return. Normal saline at 125 ml/hr. Blood pressure to be taken on left lower leg. Feeds self. SHERINE done today. Pleasant and cooperative with cares. Follow up: Back to [place] on DC
--- NOTE | 2017-06-23 05:22 | NUR ---
Significant Event: PATIENT A/OX3, NEURO CHECKS Q1 HOUR FOR SIX HOURS, AND Q2 FOR 6 HOURS, NO CHANGE IN NEURO STATUS, MOVES EXTRIMITEIS X4, VOIDED 3 TIMES, NO BM, VIAL SIGNS WNL, COMPALINED OF PAIN ONCE, REVIEVED BATH Follow up:
--- NOTE | 2017-06-23 05:57 | NUR ---
Significant Event: PATIENT A/O X2 FORGETS TIME, MOVES ARMS AND WEARS GLOVES, MOVES LEGS SLIGHTLY, VITAL SIGNS WNL, ROWE CLEAN AND HAD GOOD OUTPUT, ONE BM BLACK AND STICKY, STAYED UP ALL NIGHT LONG TALKING TO SELF, PIV X1 THAT IS SALINE LOCKED Follow up:
[2017-06-23 08:15] LABS: BASOPHIL % 0.3 %; EOSINOPHIL # 0.1 K/uL (0.0-0.5); HEMATOCRIT 37.2 % (33.0-50.0); HEMOGLOBIN 12.5 g/dL (11.0-16.0); IMMATURE GRANULOCYTE # 0.1 K/uL (0.0-0.3); IMMATURE GRANULOCYTE % 1.1 %; LYMPHOCYTE # 0.9 K/uL (0.8-4.0); LYMPHOCYTE % 8.3 %; MCH 33.1 pg (27.0-34.0); MCHC 33.6 gm/dL (32.0-36.5); MCV 98.4 fl (83.0-98.0); MONOCYTE # 0.6 K/uL (0.0-1.0); MONOCYTE % 5.7 %; MPV 11.1 fl (9.4-12.4); NEUTROPHIL # (ANC) 8.9 K/uL (1.4-9.0); NEUTROPHIL % 83.6 %; NRBC % 0 /100WBC (0-0.00); PLATELET COUNT 113 K/uL (150-450); RBC 3.78 M/uL (3.50-5.50); WBC 10.6 K/uL (4.0-11.0)
[2017-06-23 08:35] LABS: ALBUMIN 2.2 gm/dL (3.5-5.0); ANION GAP 11.7 (10.0-19.0); CREATININE 0.9 mg/dL (0.6-1.3); POTASSIUM 3.7 mMol/L (3.7-5.1); TOTAL BILIRUBIN 0.7 mg/dL (0.0-1.5); TOTAL PROTEIN 6.8 g/dL (6.0-8.4)
--- NOTE | 2017-06-23 11:05 | NUR ---
A-SCREENED D/T LOS ADMITTED FOR FEVER, CHILLS, MENTAL STATUS CHANGES. S/P PHIMOSIS EARLIER IN MAY. PT RESIDES IN A NH. HT: 71 IN. WT: 141.7 KG. BMI: 43.6 LABS REVIEWED MEDS: FEOSOL, ZOCOR, TRANDATE INJ., VANCOMYCIN DIET RX: MECHANICAL SOFT. PO INTAKE SIPS/BITES-25% EST NUTR NEEDS: [id number] KCALS (15-20 KCALS/KG) 117-156 GM/KG (1.5-2.0 GM/KG IBW) 1 ML FLUID/KCAL D-AT NUTRITION RISK W/INADEQUATE ORAL INTAKE R/T ALTERED APPETITE AEB INTAKE RECORDS I-START ENSURE ENLIVE BID M/E-GOAL: PO INTAKE OF MEALS AND SUPPLEMENTS >/=50% BY NEXT F/U 1)F/U PO INTAKE, SUPPLEMENT, AND POC IN 3-5 DAYS 2)ASSIST NEEDED
--- NOTE | 2017-06-23 17:26 | NUR ---
Significant Event: Patient alert and oriented x3. Very [place]. Seems confused at times but just has trouble understanding what you are saying. 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 Hypertensive, all other VSS on room air. Rockwell patent and draining yellow urine. Incontinent of stool last night. Scabs to L) biggs, reddened. Coccyx reddened. Scrotum reddened, aloe vesta applied. Midline placed to L) upper arm, saline locked with intermittent antibiotics. Follow up: Intermediate status. Mech soft diet. Contact isolation for MRSA in blood.
--- NOTE | 2017-06-24 03:49 | NUR ---
Significant Event: Patient is alert/oriented to person, forgetful of place and time at times. Denies N/T. Follows commands. RLE weaker than LLE. Right eye blind. RA. HTN this shift with SBPs 140s-170s. Rockwell intact. Midline to LUE, SL. Afebrile this shift. No bm this shift. Isolation for MRSA. Turn q2. Follow up: Back to [facility] when ready.
[2017-06-24 05:02] LABS: BASOPHIL % 0.3 %; EOSINOPHIL # 0.1 K/uL (0.0-0.5); EOSINOPHIL % 1.3 %; HEMATOCRIT 37.8 % (33.0-50.0); HEMOGLOBIN 12.7 g/dL (11.0-16.0); IMMATURE GRANULOCYTE # 0.2 K/uL (0.0-0.3); IMMATURE GRANULOCYTE % 1.8 %; LYMPHOCYTE # 1.1 K/uL (0.8-4.0); LYMPHOCYTE % 11.4 %; MCH 32.6 pg (27.0-34.0); MCHC 33.6 gm/dL (32.0-36.5); MCV 97.2 fl (83.0-98.0); MONOCYTE # 0.6 K/uL (0.0-1.0); MONOCYTE % 6.4 %; MPV 10.5 fl (9.4-12.4); NEUTROPHIL # (ANC) 7.8 K/uL (1.4-9.0); NEUTROPHIL % 78.8 %; NRBC % 0 /100WBC (0-0.00); PLATELET COUNT 118 K/uL (150-450); RBC 3.89 M/uL (3.50-5.50); WBC 9.9 K/uL (4.0-11.0)
[2017-06-24 05:19] LABS: ALBUMIN 2.2 gm/dL (3.5-5.0); ANION GAP 12.6 (10.0-19.0); CALCIUM 8.1 mg/dL (8.5-10.5); CREATININE 0.8 mg/dL (0.6-1.3); POTASSIUM 3.6 mMol/L (3.7-5.1); TOTAL BILIRUBIN 0.7 mg/dL (0.0-1.5); TOTAL PROTEIN 6.5 g/dL (6.0-8.4)
--- NOTE | 2017-06-24 15:16 | NUR ---
Significant Event:A/O X 3. NOME at times. Decreased vision in R) eye. SBP 180's and 200's in R) lower arm. Started on Bystolic and Lasix. Dose of Labetolol given. SBP in 170's so far, will continue to take hourly BP's to monitor. HR in 80s. Edema all over. Rockwell patent. NO BM today. Fair appetite. Aggravated that son is not calling back. Wants son to bring him clothes to wear back to the MD on Monday. Reports no pain. L) midline IV flushes and has blood return. Follow up:Labs in AM. [facility] on Monday.
--- NOTE | 2017-06-25 04:00 | NUR ---
Patient a/o x 3, forgetful. Denies n/t. R) eye blind. Follows commands. [place]. RLE weakness. RA, 1 L prn at night. PIV to L) upper arm, intermittent ABX. SBPs- 140s-150s. HR-60-70s. Rockwell intact, adequate output. VILLA pain at times. Tylenol given. Transfered to Med Surg at 0345.
[2017-06-25 05:29] LABS: BASOPHIL # 0.1 K/uL (0.0-0.2); BASOPHIL % 0.5 %; EOSINOPHIL # 0.2 K/uL (0.0-0.5); HEMATOCRIT 37.9 % (33.0-50.0); HEMOGLOBIN 13.1 g/dL (11.0-16.0); IMMATURE GRANULOCYTE # 0.3 K/uL (0.0-0.3); IMMATURE GRANULOCYTE % 3.4 %; LYMPHOCYTE # 1.3 K/uL (0.8-4.0); LYMPHOCYTE % 13.1 %; MCH 33.7 pg (27.0-34.0); MCHC 34.6 gm/dL (32.0-36.5); MCV 97.4 fl (83.0-98.0); MONOCYTE # 0.7 K/uL (0.0-1.0); MONOCYTE % 6.7 %; MPV 10.5 fl (9.4-12.4); NEUTROPHIL # (ANC) 7.5 K/uL (1.4-9.0); NEUTROPHIL % 74.3 %; NRBC % 0 /100WBC (0-0.00); RBC 3.89 M/uL (3.50-5.50); RDW-CV 14.1 % (11.9-14.6); WBC 10.1 K/uL (4.0-11.0)
[2017-06-25 05:37] LABS: PLATELET COUNT 142 K/uL (150-450)
[2017-06-25 05:47] LABS: ALBUMIN 2.4 gm/dL (3.5-5.0); ANION GAP 11.2 (10.0-19.0); CALCIUM 8.3 mg/dL (8.5-10.5); CREATININE 0.8 mg/dL (0.6-1.3); POTASSIUM 3.2 mMol/L (3.7-5.1); TOTAL BILIRUBIN 0.7 mg/dL (0.0-1.5); TOTAL PROTEIN 6.8 g/dL (6.0-8.4)
--- NOTE | 2017-06-25 07:53 | NUR ---
Significant Event: Pt transferred from ICU at 0345. Pt is alert but disoriented to time. Forgetful. IV saline locked. Pt up with a full lift. Rockwell catheter in place draining yellow urine. In contact isolation for MRSA in blood. Pt blind in right eye and hard of hearing. Had a recent circumcision, sutures intact. VSS. Follow up: Back to [facility] on discharge.
--- NOTE | 2017-06-25 19:54 | NUR ---
AAO TO PERSON AND PLACE FORGETFUL AT TIMES. DNR. FULL LIFT. ISOLATION FOR MRSA IN BLOOD. ROWE IN PLACE DRAINING YELLOW URINE. IV TO LEFT FOREARM SL FLUSHES BUT NO BLOOD RETURN. IV TO RIGHT UPPER ARM FLUSHES WELL WITH BLOOD RETURN. TYLENOL GIVEN PRN X1 FOR HEADACHE. 1L O2 AT NOC. BLIND IN RIGHT EYE. INTERMITTENT VANCOMYCIN POSSIBLE RETURN TO [facility] BUT MAY NEED [facility] IV ANTIBIOTICS.
--- NOTE | 2017-06-26 05:33 | NUR ---
Significant Event: AAOX3, FORGETFUL AT TIMES. WAS MAKING A CONSIDERABLE AMOUNT OF DEMANDS THROUGHOUT SHIFT, IF STAFF WASN'T ABLE TO MEET HIS DEMANDS (EX: APPLYING LOTION TO BODY, HE ASKED STAFF TO DO THIS EVERY 30 MINUTES TO AN HOUR, TURNING UP/DOWN THERMOSTAT SEVERAL TIMES, WANTING LIGHTS ON/OFF, ETC.) RIGHT AWAY HE WOULD YELL AT STAFF. PT WAS AGGRESIVE AND STATED HE WAS THE MOST CRITICAL PT BECAUSE HE NEEDED HIS LOTION. PT WAS VERY DIFFICULT TO EDUCATE/REDIRECT. STAFF WOULD MAKE IT A POINT TO ASK PT IF HIS NEEDS WERE MET PRIOR TO LEAVING ROOM, PT WOULD CONFIRM HE WAS CONTENT AND ALL NEEDS WERE MET. SHORTLY AFTER STAFF WOULD LEAVE THE ROOM, PT WOULD PUT CALL LIGHT ON FOR ITEMS LIKE "FRESH" WATER AND MORE LOTION TO A DIFFERNT PART OF HIS BODY. PT CONTINUED IN THIS FASHION THROUGHOUT THE SHIFT. POSSIBLE PICC PLACEMENT TODAY, AND POSSIBLE D/C BACK TO [place]. Follow up:
[2017-06-26 06:43] LABS: BASOPHIL % 0.5 %; EOSINOPHIL # 0.2 K/uL (0.0-0.5); EOSINOPHIL % 2.4 %; HEMATOCRIT 35.2 % (33.0-50.0); HEMOGLOBIN 11.8 g/dL (11.0-16.0); IMMATURE GRANULOCYTE # 0.4 K/uL (0.0-0.3); IMMATURE GRANULOCYTE % 4.7 %; LYMPHOCYTE # 1.1 K/uL (0.8-4.0); LYMPHOCYTE % 14.4 %; MCH 32.8 pg (27.0-34.0); MCHC 33.5 gm/dL (32.0-36.5); MCV 97.8 fl (83.0-98.0); MONOCYTE # 0.6 K/uL (0.0-1.0); MPV 10.6 fl (9.4-12.4); NEUTROPHIL # (ANC) 5.3 K/uL (1.4-9.0); NRBC % 0 /100WBC (0-0.00); PLATELET COUNT 140 K/uL (150-450); RDW-CV 14.1 % (11.9-14.6); WBC 7.5 K/uL (4.0-11.0)
[2017-06-26 07:02] LABS: ALBUMIN 2.2 gm/dL (3.5-5.0); ANION GAP 9.7 (10.0-19.0); CREATININE 0.8 mg/dL (0.6-1.3); POTASSIUM 3.7 mMol/L (3.7-5.1); TOTAL BILIRUBIN 0.6 mg/dL (0.0-1.5); TOTAL PROTEIN 6.4 g/dL (6.0-8.4)
--- NOTE | 2017-06-26 14:10 | NUR ---
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 PO INTAKE BITES-100%. VISITED W/PT RE: ENSURE ENLIVE. PT REPORTS THAT HE LIKES IT AND IS DRINKING IT. BRK TRAY WAS IN ROOM AT TIME OF VISIT; PT ATE BITES, BUT DID DRINK 100% OF HIS ENSURE ENLIVE. PT WAS AGREEABLE TO INCREASING ENSURE ENLIVE TO TID WHILE HIS APPETITE IS DECREASED. D-AT NUTRITION RISK W/INADEQUATE ORAL INTAKE R/T ALTERED APPETITE AEB INTAKE RECORDS, PT REPORT. I-CHANGE ENSURE ENLIVE FROM BID TO TID M/E-GOAL: PO INTAKE >/=50% BY NEXT F/U 1)F/U PO INTAKE, SUPPLEMENT, AND POC IN 3-5 DAYS 2)ASSIST NEEDED
--- NOTE | 2017-06-26 17:24 | NUR ---
Talked to Kalyn Banda APRN and patient will need IV Vanco at the [facility] through 07/07. Patient is to have PPIC line today. Several calls today with pharmacist Pablo and with [facility] staff (Jenny SCHWARTZ and Bridgett ACKERMAN). [facility] can not accept back today as has to get IV ATB and supplies from their provided and that will take 24 hours. Pharmacy order faxed to [facility]. Patient has been off the unit most of the day getting PPIC line placed, so have not talked with him. Will need to fax PPIC information and final orders with last date for IV ATBs faxed to [facility] tomorrow. Will set up transfer time in the a.m. for transfer to [facility]. Will follow.
--- NOTE | 2017-06-26 18:09 | NUR ---
PT TO [facility]41 FOR PICC LINE PLACEMENT AFTER OBTAINING PERMITS. D/T PT ANATOMY AND DECREASED ROM, UNABLE TO ASSESS BRACHIAL OR BASILIC VEINS ON EITHER EXTREMETY. CEPHALIC VEIN ASSESS ON RIGHT AND NOTED TO BE SMALLER CALIBER VESSEL IN [place] W/O TURNIQU[place]. UNABLE TO COMPRESS CEPHALIC VEIN ON LEFT WHILE VISILAZING WITH U/S PROBE THEREFORE UNABLE TO USE VESSEL D/T POSSIBLE CLOT FORMATION. UPON FURTHER INVESTIGATION OF RIGHT CEPHALIC VEIN, A 3F SINGLE LUMEN PICC WOULD OCCUPY 40-45% OF VESSEL WHEN VESSEL IN [place] W/O TURNIQUET. I DISCUSSED MY FINDING W/ AGUS CRANDALL (ORDERING PROVIDER). SHE ASKED IF I COULD FIND OUT IF [facility] WOULD TAKE THE PT BACK AFTER DISCHARGE W/ A POWERLINE OPPOSED TO A PICC. [facility] CALLED BY GAVIN DOMINIQUE AND SHE SPOKE W/ CHAPO, PER CHAPO, [facility] WOULD NOT BE ABLE TO ACCEPT THE PT AFTER DISCHARGE IF ANYTHING OTHER THAN A PICC WAS PLACED. I RELAYED THESE RESULTS AND AGUS CRANDALL AND SHE SAID SHE WOULD DISCUSS W/ DR. Shelley RODRIGUEZ. DR. RODRIGUEZ CALLED ME AND I DISCUSSED W/ HIM THE INCREASED RISK OF BLOOD CLOT FORMATION D/T PICC CATHETER OCCUPYING CLOSE TO 45% OF THE VESSEL. HE WISHED FOR ME TO PROCEED AND PLACE PICC LINE KNOWING INCREASED RISK OF BLOOD CLOT FORMATION. 3F SINGLE LUMEN PICC WAS ATTEMPTED ON THE RIGHT CEPHALIC VEIN W/O SUCCESS. AFTER OBTAING ACCESS/ENTRY INTO VESSEL, I WAS UNABLE TO THREAD PICC LINE IN PAST 15CM BEFORE MEETING SIGNIFICANT RESISTANCE DEPSITE REPOSTIONING PT ARM AND PT MULTIPLE TIMES AND ATTEMPTING FOR ALMOST 1HR. ATTEMPT TO PLACE PICC STOPPED AND INTRODUCER REMOVED AND PRESSURE HELD TO SITE UNTIL HEMOSTASIS OBTAINED, CLEAR STERILE DRESSING WAS PLACED TO SITE. AGUS CRANDALL NOTIFIED OF INABILITY TO SUCCESSFULLY PLACE PICC. SHE STATED SHE WOULD CONTACT RADIOLOGY TO SEE IF THEY COULD ATTEMPT TO PLACE UNDER FLUORSCOPY. PT RETURNED TO [facility] AND PT'S PRIMARY NURSE MARIKA NOTIFIED AND UPDATED ON SITUATION.
--- NOTE | 2017-06-26 20:29 | NUR ---
Significant Event:A/O X 3. Decreased vision in R) eye. TE-MOAK. Hollers out instead of using call light. Red Bulb call light placed in patient hand and clipped to patient glove. SBP 120's. HR 8os' O2 sats > 90% on room air. Likes to wear 1L/NC at noc. Poor appetite, no teeth. Encourage PO intake and nutrition. Meals ordered for patient. Likes ensure. Rockwell patent. NO BM today. NO C/O pain. Gets angry if not sitting up in chair at all times. Lifted to bed to turn off of coccyx and apply moisture barrier. Smith sutures noted to penis/circumcision. PICC line placed by radiology after VAN unable to access. R) upper arm PICC OK to use x 2 lumens. Plan for assisted antibiotics for 2 weeks, due to MRSA in blood. REduced dose of 250 mg IV vanco per pharmacy for renal dosing. Follow up:Plans to go back to [facility] tomorrow.
--- NOTE | 2017-06-27 01:57 | NUR ---
SIGNIFICANT EVENT: Pt alert, confused at times. PICC to R) UA. Hypertensive at times - 149 to 152 over 75 to 82, other VSS on RA. Bedrest. 2PA, full lift. Rockwell patent, draining concentrated dark yellow urine. Contact Isolation for MRSA in blood and urine. Blind in R) eye. Plan is to DC to [facility] - possibly on 06/27/17.
[2017-06-27 05:45] LABS: ALBUMIN 2.4 gm/dL (3.5-5.0); CALCIUM 8.2 mg/dL (8.5-10.5); CREATININE 0.8 mg/dL (0.6-1.3); TOTAL BILIRUBIN 0.7 mg/dL (0.0-1.5); TOTAL PROTEIN 6.3 g/dL (6.0-8.4)
[2017-06-27 05:48] LABS: HEMATOCRIT 34.4 % (33.0-50.0); HEMOGLOBIN 11.8 g/dL (11.0-16.0); MCH 33.6 pg (27.0-34.0); MCHC 34.3 gm/dL (32.0-36.5); MPV 10.8 fl (9.4-12.4); PLATELET COUNT 157 K/uL (150-450); RBC 3.51 M/uL (3.50-5.50); RDW-CV 14.4 % (11.9-14.6); WBC 8.4 K/uL (4.0-11.0)
[2017-06-27 06:22] LABS: ABSOLUTE NEUTROPHIL CT (ANC) 6.8 K/uL (1.4-9.0); BANDED NEUTROPHIL # 1.3 K/uL (0.0-0.1); BANDED NEUTROPHILS % 16 %; LYMPHOCYTE # 1.1 K/uL (0.8-4.0); LYMPHOCYTE % 13 %; MONOCYTE # 0.3 K/uL (0.0-1.0); SEGMENTED NEUTROPHIL # 5.5 K/uL (1.4-9.0); SEGMENTED NEUTROPHIL % 65 %
--- NOTE | 2017-06-27 13:22 | NUR ---
Alert and oriented. Can be forgetful and asks same questions over and over. Vital signs: BP 141/70, HR 78, O2 90, Temp 98.4, RR 18. Lung sounds clear and diminished upper and diminished lower. PICC to upper right arm, flushes well. Stitches to penis due to circumcision. [place] intact with 875 ml out this shift. Isolation for MRSA in the urine and blood. Bowel sounds active. Patient is blind in the right eye and hard of hearing.
--- NOTE | 2017-06-27 14:20 | NUR ---
Patient discharged to [facility] today with IV antibx q day. Called [facility] and faxed orders, gave number to nurse to call report. Will be a skilled stay. Called pt granddaughter Esthela and let her know pt discharging today, son Nico and Robson Haas do not answer numbers in demographics.
== END 2017-06-27 13:35 | DRG 871 ==
LOC: GMED 15:19 → GICU 17:27 → GMSU 06-25 03:27
PROVIDERS: Family Medicine; Internal Medicine; ADMIT Internal Medicine
PROC: 3E033XZ Introduction of Vasopressor into Peripheral Vein, Percutaneous Approach (ICD-10-PCS; principal; 2017-06-19)
PROC: B246ZZ4 Ultrasonography of Right and Left Heart, Transesophageal (ICD-10-PCS; 2017-06-22)
PROC: 02H633Z Insertion of Infusion Device into Right Atrium, Percutaneous Approach (ICD-10-PCS; 2017-06-26)
PROC: B2141ZZ Fluoroscopy of Right Heart using Low Osmolar Contrast (ICD-10-PCS; 2017-06-26)
DX: A41.02 Sepsis due to Methicillin resistant Staphylococcus aureus (principal); G93.41 Metabolic encephalopathy; N17.9 Acute kidney failure, unspecified; N39.0 Urinary tract infection, site not specified; E87.1 Hypo-osmolality and hyponatremia; E87.2 Acidosis; J96.10 Chronic respiratory failure, unspecified whether with hypoxia or hypercapnia; Z68.41 Body mass index [BMI] 40.0-44.9, adult; R65.20 Severe sepsis without septic shock; E03.9 Hypothyroidism, unspecified; E66.01 Morbid (severe) obesity due to excess calories; E78.5 Hyperlipidemia, unspecified; E87.6 Hypokalemia; F03.90 Unspecified dementia, unspecified severity, without behavioral disturbance, psychotic disturbance, mood disturbance, and anxiety; I10 Essential (primary) hypertension; Z66 Do not resuscitate; B95.62 Methicillin resistant Staphylococcus aureus infection as the cause of diseases classified elsewhere
CPT/HCPCS: C1751; C1769; C1894; J0696; J1644; J1956; J2543; J3370; J3480; J7030; J7040; J7050

== ENCOUNTER → 2017-06-28 | Outpatient (CLI) | payer MEDICARE, MEDICAID ==
[~2017-06-28] MED LIST changes: +NYSTOP60 GM TOP
[2017-06-28 15:01] LABS: ANION GAP 8.9 (10.0-19.0); CALCIUM 8.2 mg/dL (8.5-10.5); CREATININE 0.8 mg/dL (0.6-1.3); POTASSIUM 3.9 mMol/L (3.7-5.1)
== END ==
PROVIDERS: Family Medicine
DX: N18.9 Chronic kidney disease, unspecified (principal)